=== PATIENT | male | born 1945 | race Caucasian/White ===

== ENCOUNTER 2017-10-17 07:08 | Day surgery (SDC) | payer OTHER, MEDICARE ==
[~2017-10-17] VITALS: Ht 193 cm; Wt 107.6 kg
[~2017-10-17 07:08] MED LIST: ASPI81CH; ELIQUIS2.5 MG; ROSU5 PO; TAMS.4ER
== END 2017-10-17 09:32 | disposition home or self-care (01) ==
LOC: ORSCSDS 07:08
PROVIDERS: Internal Medicine Gastroenterology
PROC: 0DBN8ZX Excision of Sigmoid Colon, Via Natural or Artificial Opening Endoscopic, Diagnostic (ICD-10-PCS; principal; 2017-10-17 08:30)
PROC: 0DBL8ZX Excision of Transverse Colon, Via Natural or Artificial Opening Endoscopic, Diagnostic (ICD-10-PCS; principal; 2017-10-17 08:30)
DX: Z12.11 Encounter for screening for malignant neoplasm of colon (principal); D12.3 Benign neoplasm of transverse colon; K63.5 Polyp of colon; K64.8 Other hemorrhoids; K57.30 Diverticulosis of large intestine without perforation or abscess without bleeding; Z86.010 Personal history of colon polyps; Z79.82 Long term (current) use of aspirin; Z79.01 Long term (current) use of anticoagulants; Z79.899 Other long term (current) drug therapy
CPT/HCPCS: J7120

== ENCOUNTER → 2017-12-04 | Outpatient (CLI) | payer OTHER, MEDICARE | END | disposition home or self-care (01) | LOC: LAB SHORT 08:48 → PLD 08:48 | DX: L82.1 Other seborrheic keratosis (principal) | CPT/HCPCS: 88305 ==

== ENCOUNTER 2022-03-31 10:45 | Inpatient (IN) | payer OTHER, MEDICARE ==
[~2022-03-31] VITALS: Ht 193 cm; Wt 113.3 kg
[2022-03-31 11:00] LABS: Calcium, Ionized (POC) 1.14 mmol/L (1.10-1.46); Chloride (POC) 108 mmol/L (98-108); Creatinine (POC) 1.9 mg/dL (0.8-1.3); Glucose (ISTAT POC) 211 mg/dL (70-99); Hemoglobin (POC) 16.7 g/dL (13.5-17.5); Potassium (POC) 3.9 mmol/L (3.5-5.5); Sodium (POC) 140 mmol/L (135-148); Total CO2 (POC) 17 mmol/L (21-32)
[2022-03-31 11:10] LABS: BASOPHILS ABSOLUTE AUTO 0.18 K/mm3 (0.00-0.23); BASOPHILS PERCENT AUTO 1 % (0-2); EOSINOPHILS ABSOLUTE AUTO 0.15 K/mm3 (0.00-0.68); EOSINOPHILS PERCENT AUTO 1 % (0-6); Hematocrit 49.8 % (37.0-53.0); IMMATURE GRAN ABSOLUTE AUTO 0.78 K/mm3 (0.00-0.10); IMMATURE GRAN PERCENT AUTO 4 % (0-1); LYMPHOCYTES ABSOLUTE AUTO 4.32 K/mm3 (0.84-5.20); LYMPHOCYTES PERCENT AUTO 22 % (21-46); MONOCYTES ABSOLUTE AUTO 0.98 K/mm3 (0.16-1.47); MONOCYTES PERCENT AUTO 5 % (4-13); Mean Corpuscular HGB 32.1 pg (26.0-34.0); Mean Corpuscular HGB Conc 32.1 g/dL (31.5-36.5); Mean Corpuscular Volume 100 fL (80-100); Mean Platelet Volume 10.1 fL (9.1-12.4); NEUTROPHILS ABSOLUTE AUTO 13.56 K/mm3 (1.96-9.15); NEUTROPHILS PERCENT AUTO 68 % (41-73); Platelet Count 232 K/mm3 (150-400); RDW Coefficient Variation 13.2 % (11.7-14.2); RDW Standard Deviation 48.8 fL (35.1-46.3); Red Blood Cell Count 4.99 M/mm3 (4.30-5.90); White Blood Cell Count 19.97 K/mm3 (4.00-11.30)
[2022-03-31 11:27] LABS: International Normalized Ratio 1.16; Prothrombin Time Results 12.1 Sec (9.7-11.5)
[2022-03-31 11:33] LABS: Albumin, Blood 3.2 g/dL (3.4-5.0); Albumin/Globulin Ratio 1.1 (0.8-1.8); Bun/Creatinine Ratio 13.4 (12.0-20.0); Calcium, Blood 8.5 mg/dL (8.5-10.1); Creatinine, Blood 1.79 mg/dL (0.60-1.20); Globulin, Blood 2.9 g/dL (2.2-4.0); Potassium, Blood 3.9 mmol/L (3.5-5.5); Total Protein, Blood 6.1 g/dL (6.4-8.2)
[2022-03-31 11:47] LABS: Source, Urine Foley catheter
[2022-03-31 12:14] LABS: Appearance, Urine Hazy (Clear); Bilirubin, Urine Neg (Neg); Blood, Urine 4+ (Neg); Color, Urine Yellow (P-Yellow); Glucose Qualitative, Urine Neg (Neg); Ketones, Urine Neg (Neg); Leukocyte Esterase, Urine 3+ (Neg); Nitrite, Urine Neg (Neg); Protein, Urine 3+ (Neg); Specific Gravity, Urine 1.015 (1.003-1.022); Urobilinogen, Urine 1+ (Normal); pH, Urine 6.5 (5.0-8.0)
[2022-03-31 12:24] LABS: White Blood Cells, Urine TNTC /hpf (0-5)
[2022-03-31 12:25] LABS: Bacteria Mod /hpf; Red Blood Cells, Urine 25-50 /hpf (0-2); Squamous Epithelial Cells Not Seen /hpf (Few); Transitional Epithelial Cells Rare /hpf (0-Rare)
[2022-03-31 12:26] LABS: Hyaline Casts 0-2 /lpf (0-2)
[2022-03-31 12:38] LABS: Influenza A, PCR NEGATIVE (NEGATIVE); Influenza B, PCR NEGATIVE (NEGATIVE); Resp Syncytial Virus, PCR NEGATIVE (NEGATIVE); SARS-Cov-2 (COVID-19) PCR, MMC NEGATIVE (NEGATIVE)
[2022-03-31 13:44] LABS: Base Excess Venous -4.1 mmol/L; Bicarbonate Venous 21.2 mmol/L (24.0-30.0); PCO2 Venous 38.7 mmHg (38-42); PO2 Venous 61.9 mmHg (38-42); pH Blood Venous 7.35 (7.34-7.37)
[2022-03-31 14:24] LABS: BASOPHILS ABSOLUTE AUTO 0.05 K/mm3 (0.00-0.23); BASOPHILS PERCENT AUTO 0 % (0-2); EOSINOPHILS ABSOLUTE AUTO 0.01 K/mm3 (0.00-0.68); EOSINOPHILS PERCENT AUTO 0 % (0-6); Hematocrit 49.6 % (37.0-53.0); Hemoglobin 16.8 g/dL (13.5-17.5); IMMATURE GRAN ABSOLUTE AUTO 0.09 K/mm3 (0.00-0.10); IMMATURE GRAN PERCENT AUTO 1 % (0-1); LYMPHOCYTES ABSOLUTE AUTO 0.81 K/mm3 (0.84-5.20); LYMPHOCYTES PERCENT AUTO 7 % (21-46); MONOCYTES ABSOLUTE AUTO 0.95 K/mm3 (0.16-1.47); MONOCYTES PERCENT AUTO 8 % (4-13); Mean Corpuscular HGB 32.4 pg (26.0-34.0); Mean Corpuscular HGB Conc 33.9 g/dL (31.5-36.5); Mean Corpuscular Volume 96 fL (80-100); NEUTROPHILS ABSOLUTE AUTO 10.34 K/mm3 (1.96-9.15); NEUTROPHILS PERCENT AUTO 84 % (41-73); Platelet Count 165 K/mm3 (150-400); RDW Coefficient Variation 13.2 % (11.7-14.2); RDW Standard Deviation 46.7 fL (35.1-46.3); Red Blood Cell Count 5.19 M/mm3 (4.30-5.90); White Blood Cell Count 12.25 K/mm3 (4.00-11.30)
--- NOTE | 2022-03-31 14:38 | NUR ---
[place] of Care: Patient arrived from ED at 1310hr via stretcher, accompanied by ED nurse and RT. Arrives intubated , not on any sedation. Vent to AC 16/550/5/50%, spO2-100%, tolerating vent without difficulty. No cough, gag, corneal, or plantar reflex noted. No response to painful stimuli. Pupils equal at approx 2mm with sluggish response bilaterally to light. Minor and occasional twitching movements or mouth. Levophed gtt stopped by ED nurse prior to transport, BP stable with systolic's in the 130's to 140's. Heart rate/rhythm shows A-fibb rate 120's-140, occasional PVC's. Amiodarone gtt infusing at 1mg/min. NS at 100ml/hr, discontinued by Dr. Zuniga. Also received order for cardiology consult per Dr. Zuniga, who spoke with Dr. Anthony. IV Keppra given per EMAR. Echo completed. Peripheral IV's x2 patent and intact. Sandoval cath patent and intact. Central line to rt subclavian patent and intact. Family (, daughter) brought to bedside, all questions answered to satisfaction. Will continue to monitor.
[2022-03-31 15:10] LABS: Anion Gap 5 mmol/L (6-16); Blood Urea Nitrogen 25 mg/dL (8-24); Bun/Creatinine Ratio 14.7 (12.0-20.0); CO2, Blood 22 mmol/L (21-32); Calcium, Blood 8.6 mg/dL (8.5-10.1); Chloride, Blood 111 mmol/L (98-108); Glomerular Filtration Rate 42 (60-); Glucose, Blood 227 mg/dL (70-99); Potassium, Blood 3.6 mmol/L (3.5-5.5); Sodium, Blood 138 mmol/L (136-145)
--- NOTE | 2022-03-31 18:32 | NUR ---
Shift Summary: Patient transported to clinical laboratory manager for angiogram with Dr. Anthony at approx 1600hr. Returned to ICU at approx 1745 (see procedure notes). TR band in place to rt radial with 11ml air in band, no s/s of bleeding or hematoma, distal limb wnl. VS remain stable, with amiodarone gtt at 0.5mg/min, Esmolol gtt at 50mcg/kg/min. Heart rate remains A-fibb in the low 100's. Patient now open eyes but not following any commands. Propofol gtt started at 15mcg/kg/min per s/s of discomfort with good effect. Plan to transport to CT at this time to rule out PE.
--- NOTE | 2022-03-31 19:00 | NUR ---
ASSUMED CARE ASSUMED CARE OF PATIENT. INTUBATED- AC/VC 16, TV 550, PEEP 5, FIO2 40%. RR 16. PROPOFOL INFUSING AT 15MCG/KG/MIN. WITHDRAWS EXTREMITIES TO NOXIOUS STIMULI. ATTEMPTS TO OPEN EYES. BILATERAL SOFT WRIST RESTRAINTS IN PLACE TO PREVENT SELF-EXTUBATION. MONITOR SHOWS AFIB, RATE 90s-100s. ESMOLOL INFUSING AT 50MCG/KG/MIN. AMIODARONE INFUSING AT 0.5MG/MIN. HEPARIN GTT AT 15UNITS/KG/HR PER PHARMACY. HYPOTENSIVE, BUT MAP >65. TEMP 97.7F- COOLING BLANKET PLACED BACK ON PT FOR TARGET TEMP OF 96.8F. OG TO LIS- SMALL AMOUNT BROWN DRAINAGE. MELTON PATENT AND DRAINING TO GRAVITY. RIJ CENTRAL LINE NOTED. SEE SHIFT ASSESSMENT FOR FULL ASSESSMENT.
[2022-04-01 02:28] LABS: BASOPHILS ABSOLUTE AUTO 0.03 K/mm3 (0.00-0.23); BASOPHILS PERCENT AUTO 0 % (0-2); EOSINOPHILS PERCENT AUTO 0 % (0-6); Hematocrit 44.4 % (37.0-53.0); IMMATURE GRAN ABSOLUTE AUTO 0.04 K/mm3 (0.00-0.10); IMMATURE GRAN PERCENT AUTO 0 % (0-1); LYMPHOCYTES ABSOLUTE AUTO 0.63 K/mm3 (0.84-5.20); LYMPHOCYTES PERCENT AUTO 6 % (21-46); MONOCYTES ABSOLUTE AUTO 0.82 K/mm3 (0.16-1.47); MONOCYTES PERCENT AUTO 8 % (4-13); Mean Corpuscular HGB 31.8 pg (26.0-34.0); Mean Corpuscular HGB Conc 33.8 g/dL (31.5-36.5); Mean Corpuscular Volume 94 fL (80-100); NEUTROPHILS ABSOLUTE AUTO 8.67 K/mm3 (1.96-9.15); NEUTROPHILS PERCENT AUTO 85 % (41-73); Platelet Count 165 K/mm3 (150-400); RDW Coefficient Variation 13.6 % (11.7-14.2); RDW Standard Deviation 47.7 fL (35.1-46.3); Red Blood Cell Count 4.72 M/mm3 (4.30-5.90); White Blood Cell Count 10.19 K/mm3 (4.00-11.30)
[2022-04-01 02:52] LABS: Albumin, Blood 2.9 g/dL (3.4-5.0); Bilirubin, Direct 0.4 mg/dL (0.0-0.3); Bilirubin, Indirect 1.8 mg/dL (0.1-0.7); Bilirubin, Total 2.2 mg/dL (0.1-1.0); Calcium, Blood 8.3 mg/dL (8.5-10.1); Creatinine, Blood 1.56 mg/dL (0.60-1.20); Globulin, Blood 2.8 g/dL (2.2-4.0); Potassium, Blood 4.5 mmol/L (3.5-5.5); Total Protein, Blood 5.7 g/dL (6.4-8.2)
--- NOTE | 2022-04-01 06:42 | NUR ---
SHIFT SUMMARY NO ACUTE CHANGES DURING NOC. REMAINS INTUBATED- FIO2 NOW 30%. SEDATED WITH PROPOFOL BETWEEN 15-25MCG/KG/MIN DURING SHIFT- NOW INFUSING AT 20MCG/KG/MIN. ALSO MEDICATED WITH FENTANYL 50MCG IV X 1 AND ATIVAN 2MG IV X 1 FOR SEDATION ADJUNCT. PT OPENS EYES TO STIMULI. WITHDRAWS EXTREMITIES. BILATERAL SOFT WRIST RESTRAINTS IN PLACE. OG TO LIS- BROWN DRAINAGE. MELTON PATENT AND DRAINING TO GRAVITY. TTM- GOAL TEMP 96.8F. MONITOR SHOWS AFIBE, RATE 80s-100S. HYPOTENSIVE, BUT MAP >65. HEPARIN NOW AT 12UNITS/KG/HR. AMIODARONE INFUSING AT 0.5MCG/MIN. ESMOLOL REMAINS OFF. WILL REPORT TO ONCOMING RN WHEN AVAILABLE.
--- NOTE | 2022-04-01 08:15 | NUR ---
ASSUMED CARE REPORT FROM RUFINA HAYWARD AT 0700. PT INTUBATED AND SEDATED. VENT SETTINGS AC/VC 16/550/5/30%. LUNGS CLEAR, DIM IN BASES. MODERATE AMOUNT OF THICK PIEDRA SECRETIONS FROM ETT. PROPOFOL GTT FOR SEDATION. COUGH/GAG REFLEX. OPENS EYES TO PRESSURE. DOES NOT FOLLOW COMMANDS. GRIMACES c CARE. DOES NOT WITHDRAW EXT TO PAINFUL STIMULI. RASS -4. PROPOFOL DECREASED. AFIB ON MONITOR, RATE 80-110'S. AMIO GTT INFUSING. HEPARIN GTT PLACED ON STANDBY PER PHARMACY. BP STABLE. MONITORING TEMP FOR TTM, 97.7. RIGHT RADIAL ACCESS SITE WNL. ABD ROUND, SOFT, NON TENDER. BT X 4. OGT CLAMPED AFTER MED ADMINSTRATION. MELTON PATENT, DRAINING CLEAR YELLOW URINE TO GRAVITY. CVC TO RSC, DRESSING C/D/I. WILL CONTINUE TO MONITOR.
[2022-04-01] MEDS ORDERED: ELIQUIS5 M3 PO (08:35)
[2022-04-01] MEDS ORDERED: SILDENAFIL CIT100 MG PO (08:36)
[2022-04-01] MEDS ORDERED: METOPROLOL SUCC25 MG PO (08:36)
[2022-04-01] MEDS ORDERED: ALFUZOSIN HCL10 MG PO (08:37)
[2022-04-01] MEDS ORDERED: ALLO300 PO (08:37)
--- NOTE | 2022-04-01 08:48 | NUR ---
RINGS TWO GOLD RINGS REMOVED AND GIVEN TO TO TAKE HOME.
--- NOTE | 2022-04-01 13:00 | NUR ---
SEDATION VACATION PROPOFOL PLACED ON STANDBY. VENT SETTINGS SPONT 5/5/30%. TV 500-600'S. TOLERATED WELL FOR SEVERAL HOURS, WHEN STARTED HAVING APENIC SPELLS, PLACED BACK ON PREVIOUS VENT SETTINGS. WHEN SEDATION WAS OFF, PT NOT FOLLOWING COMMANDS. SPONT OPENING OF EYES, DOES NOT TRACK. SLIGHT MOVEMENT NOTED TO ALL EXT. DOES NOT WITHDRAW FROM PAINFUL STIMULI. RESTARTED SEDATION D/T COUGHING AND FOR VENT COMPLIANCE.
[2022-04-01 15:28] LABS: BASOPHILS ABSOLUTE AUTO 0.02 K/mm3 (0.00-0.23); BASOPHILS PERCENT AUTO 0 % (0-2); EOSINOPHILS ABSOLUTE AUTO 0.01 K/mm3 (0.00-0.68); EOSINOPHILS PERCENT AUTO 0 % (0-6); Hematocrit 44.7 % (37.0-53.0); Hemoglobin 15.2 g/dL (13.5-17.5); IMMATURE GRAN ABSOLUTE AUTO 0.04 K/mm3 (0.00-0.10); IMMATURE GRAN PERCENT AUTO 0 % (0-1); LYMPHOCYTES ABSOLUTE AUTO 0.72 K/mm3 (0.84-5.20); LYMPHOCYTES PERCENT AUTO 6 % (21-46); MONOCYTES ABSOLUTE AUTO 0.83 K/mm3 (0.16-1.47); MONOCYTES PERCENT AUTO 7 % (4-13); Mean Corpuscular HGB 32.4 pg (26.0-34.0); Mean Corpuscular Volume 95 fL (80-100); Mean Platelet Volume 10.8 fL (9.1-12.4); NEUTROPHILS ABSOLUTE AUTO 9.91 K/mm3 (1.96-9.15); NEUTROPHILS PERCENT AUTO 86 % (41-73); Platelet Count 165 K/mm3 (150-400); RDW Coefficient Variation 13.9 % (11.7-14.2); RDW Standard Deviation 49.1 fL (35.1-46.3); Red Blood Cell Count 4.69 M/mm3 (4.30-5.90); White Blood Cell Count 11.53 K/mm3 (4.00-11.30)
[2022-04-01 15:45] LABS: Bun/Creatinine Ratio 16.9 (12.0-20.0); Calcium, Blood 8.8 mg/dL (8.5-10.1); Creatinine, Blood 1.36 mg/dL (0.60-1.20); Potassium, Blood 4.2 mmol/L (3.5-5.5)
--- NOTE | 2022-04-01 17:24 | NUR ---
SHIFT SUMMARY REMAINS INTUBATED AND SEDATED. VENT SETTTINGS AC/VC 16/550/5/30%. LUNGS CLEAR. SMALL AMOUNT OF THICK WHITE SECRETIONS FROM ETT, DECREASED FROM EARLIER THIS SHIFT. PROPOFOL GTT INFUSING. NO CHANGE IN NEURO STATUS. AFIB ON MONITOR, ESMOLOL GTT STARTED FOR RATE CONTROL, HR 90'S WHEN NOT STIMULATED, INCREASES TO 110-120'S c STIMULATION. BP STABLE. AMIO GTT CONTINUES AT 0.5 MCG/MIN. HEPARIN INFUSING AT 9 UNITS/KG/HR. CT HEAD COMPLETE THIS SHIFT. TUBE FEEDS STARTED AT 25 ML/HR c 30 ML FLUSH q4 HR, GOAL RATE 65 ML/HR. ABD ROUND, SOFT, NON TENDER, BT X 4. MELTON PATENT, DRAINED 400 ML EVERTON URINE TO GRAVITY. CVC TO RSC. CHB BATH COMPLETE. FAMILY AT BEDSIDE. WILL CONTINUE TO MONITOR UNTIL REPORT TO ONCOMING NURSE.
--- NOTE | 2022-04-01 20:00 | NUR ---
ASSUMED CARE OF PT AT 1915. REPORT RECEIVED AT BEDSIDE. PT PRESENTS IN BED. INTUBATED. AC 16, Tv 550, FIO2 30 PERCENT, PEEP 5. DOES OVER BREATHE VENT SOME. MAINTAINS SATURATIONS > 90 %. ESMOLOL DRIP PLACED TO STANDBY. HEART RATE REMAINS <100 BPM. WILL REVIEW CHART AND PLAN OF CARE FOR THIS PT.
--- NOTE | 2022-04-01 23:10 | NUR ---
PT CHANGED FROM AC/VC TO PC 12/29. PEEP AT 5. FIO2 AT 30%. PT HAD BEEN OVERBREATHING VENT WHILE ON AC/PC WELL STACKING RESPIRATIONS. PT RESTING AT THIS TIME. HAVE INCREASED PROPOFOL TO 20 MCG'S/KG/MIN. WILL CLOSELY MONITOR PT'S RESPIRATORY STATUS AND VENT COMPLIANCE. HAVE REMOVED COOLING BLANKET. PT POST 24 HOURS.
[2022-04-02 04:28] LABS: BASOPHILS ABSOLUTE AUTO 0.05 K/mm3 (0.00-0.23); BASOPHILS PERCENT AUTO 1 % (0-2); EOSINOPHILS ABSOLUTE AUTO 0.03 K/mm3 (0.00-0.68); EOSINOPHILS PERCENT AUTO 0 % (0-6); Hematocrit 41.8 % (37.0-53.0); Hemoglobin 14.2 g/dL (13.5-17.5); IMMATURE GRAN ABSOLUTE AUTO 0.05 K/mm3 (0.00-0.10); IMMATURE GRAN PERCENT AUTO 1 % (0-1); LYMPHOCYTES ABSOLUTE AUTO 1.06 K/mm3 (0.84-5.20); LYMPHOCYTES PERCENT AUTO 10 % (21-46); MONOCYTES ABSOLUTE AUTO 0.84 K/mm3 (0.16-1.47); MONOCYTES PERCENT AUTO 8 % (4-13); Mean Corpuscular HGB 32.5 pg (26.0-34.0); Mean Corpuscular Volume 96 fL (80-100); Mean Platelet Volume 10.3 fL (9.1-12.4); NEUTROPHILS ABSOLUTE AUTO 8.89 K/mm3 (1.96-9.15); NEUTROPHILS PERCENT AUTO 81 % (41-73); Platelet Count 153 K/mm3 (150-400); RDW Coefficient Variation 13.6 % (11.7-14.2); RDW Standard Deviation 48.8 fL (35.1-46.3); Red Blood Cell Count 4.37 M/mm3 (4.30-5.90); White Blood Cell Count 10.92 K/mm3 (4.00-11.30)
[2022-04-02 04:49] LABS: Albumin, Blood 2.7 g/dL (3.4-5.0); Albumin/Globulin Ratio 0.9 (0.8-1.8); Bilirubin, Total 1.6 mg/dL (0.1-1.0); Bun/Creatinine Ratio 18.5 (12.0-20.0); Calcium, Blood 8.3 mg/dL (8.5-10.1); Creatinine, Blood 1.3 mg/dL (0.60-1.20); Globulin, Blood 2.9 g/dL (2.2-4.0); Magnesium, Blood 2.1 mg/dL (1.6-2.4); Phosphorus, Blood 2.8 mg/dL (2.5-4.9); Potassium, Blood 3.6 mmol/L (3.5-5.5); Total Protein, Blood 5.6 g/dL (6.4-8.2)
--- NOTE | 2022-04-02 06:30 | NUR ---
PT CHANGED TO SPONTANEOUS. PT HAS BEEN TOLERATING THIS WELL WITHOUT APNEIC PERIODS. TOLERATING TUBE FEEDING AT 35 ML/HOUR. PT DOES OPEN EYES TO STIMULI, BUT HAS NO PURPOSEFUL MOVEMENTS. WILL CONTINUE TO MONITOR, AND WILL REPORT OFF TO ONCOMING RN.
--- NOTE | 2022-04-02 08:55 | NUR ---
ASSUMED CARE REPORT FROM GENARO HAYWARD AT 0700. PT INTUBATED AND SEDATED. VENT SETTINGS AT SHIFT CHANGE, SPONT 5/5/30%, ALARMING FOR APENIA, CHANGED SETTINGS TO AC/VC 16/550/5/30%. LUNGS CLEAR. SMALL AMOUNT OF THIN WHITE SECRETIONS FROM ETT. PROPOFOL PLACED ON STANDBY. COUGH/GAG REFLEX. OPENS EYES TO PRESSURE. DOES NOT WITHDRAW FROM PAIN. NO MOVEMENT TO EXT NOTED AT THIS TIME. AFIB ON MONITOR, RATE 110'S AT SHIFT CHANGE, RESTARTED ESMOLOL GTT, 90-100 AT THIS TIME. AMIO GTT AND HEPARIN GTT INFUSING. BP STABLE. PT FLUSHED TO UPPER CHEST AND BILATERAL KNEES, BLANCHES. TEMP 100.2, TYLENOL GIVEN, FAN APPLIED. TUBE FEEDS AT 35 ML, GOAL 65ML. ABD ROUND, SOFT, NON TENDER. BT X 4. MELTON PATENT, EVERTON URINE OUT. CVC TO RSC, DRESSING C/D/I. WILL CONTINUE TO MONITOR.
--- NOTE | 2022-04-02 10:27 | NUR ---
Spoke with glass grinder Stacey and Primary RN Kamille. Discussed case and concerns. Pt resting in bed and is intubated. Sedation off and Pt's eyes open and close intermittently. No S/S of distress at this time. Pt's spouse Brooklynn at bedside. Offered therapeutic listening and reviewed plan of care. Listened as Brooklynn reports being to Pt for 20 years and dated for 8 years prior to marriage. Brooklynn reports Pt has 2 children and she has 1 child. Children are supportive. Listened as Brooklynn discusses events leading up to event. Brooklynn appears to be struggling with some guilt. Continued therapeutic listening and normalized feelings. Offered emotional support as Brooklynn is intermittently tearful. Ended visit to allow Brooklynn time with Pt. Palliative Care will remain available.
--- NOTE | 2022-04-02 13:36 | NUR ---
SEDATION VACATION PT OFF PROPOFOL FOR APPROX 5 HOURS. PT OPENS EYES SPONT MORE FREQUENTLY, GRIMACED FACE. DOES NOT WITHDRAW EXT FROM PAIN. DOES NOT FOLLOW COMMANDS. NO MOVEMENT TO EXT NOTED. COUGH/GAG REFLEX, CORNEAL REFLEX PRESENT. RESTARTED PROPOFOL PER DR LOU FOR SEIZURE PREVENTION, NO SEIZURE LIKE ACTIVITY NOTED. EEG ORDERED FOR MONDAY.
--- NOTE | 2022-04-02 18:20 | NUR ---
SHIFT SUMMARY REMAINS INTUBATED AND SEDATED. VENT SETTINGS AC/VC 16/550/5/30%. LUNGS CLEAR, SMALL AMOUNT OF THIN SECRETIONS FROM ETT, COPIOUS ORAL SECRETIONS. RESTARTED PROPOFOL, SEE SEDATION VACATION NOTE. PT OPENS EYES SPONT, COUGH/GAG/CORNEAL REFLEX PRESENT. SPONT MOVEMENT TO ALL EXT, DOES NOT FOLLOW COMMANDS. AFIB, RATE 80-90'S. ESMOLOL AND AMIO GTT CONTINUE. HEPARIN GTT INFUSING. BP STABLE. TUBE FEEDS INFUSING, INCREASED THIS SHIFT. MELTON PATENT, DRAINED 350 ML EVERTON URINE TO GRAVITY. INCREASED SWELLING NOTED TO RLE, STATES PT HAS DVT IN THIS LEG. WILL CONTINUE TO MONITOR UNTIL REPORT TO ONCOMING NURSE.
--- NOTE | 2022-04-02 19:15 | NUR ---
ASSUMED CARE OF PT AT 1900. REPORT RECEIVED AT BEDSIDE. PT'S FAMILY WAS PRESENT. ALLOWED FOR FAMILY QUESTIONS AND INPUT. PT INTUBATED. VENT: AC/VC 16, Tv 550, FIO2 30%, PEEP 5. PT MAINTAINS SATURATIONS > 90 PERCENT. NO S/S DISTRESS. WILL REVIEW CHART AND PLAN OF CARE FOR THIS PT.
--- NOTE | 2022-04-02 22:57 | NUR ---
REPORT GIVEN TO YESY LOVE.
--- NOTE | 2022-04-02 23:05 | NUR ---
ASSUMED CARE OF PT @2300 FROM GENARO HAYWARD. BEDSIDE REPORT: PT IS SEDATED AND INTUBATED. PROPOFOL 20MCG/KG/MIN. ETT 8.0/26@TEETH. AC VC 15/550/5/30%. RR 16, SPO2 >92%. CONTINUOUS CARDIAC MONITORING. AFIB HR 80'S. AMIODARONE 0.5MG/MIN, HEPARIN 11U/KG/HR, ESMOLOL 25MCG/KG/MIN, TKO 10MLS/HR. CENTRAL LINE RSC INFUSING, 20GA UBALDO PATENT AND INFUSING, IV L WRIST PATENT AND INFUSING. TF PIVOT 55MLS/HR. TEMP MELTON PATENT AND DRAINING TO GRAVITY.
--- NOTE | 2022-04-03 03:30 | NUR ---
UPDATE: PT'S BLOOD PRESSURE TRENDING DOWN. HR DECREASED INTO THE 50'S. ESMOLOL PUT ON SB.
[2022-04-03 05:41] LABS: Hematocrit 38.7 % (37.0-53.0); Hemoglobin 12.9 g/dL (13.5-17.5); Mean Corpuscular HGB Conc 33.3 g/dL (31.5-36.5); Mean Corpuscular Volume 96 fL (80-100); Mean Platelet Volume 10.5 fL (9.1-12.4); Platelet Count 135 K/mm3 (150-400); RDW Coefficient Variation 13.5 % (11.7-14.2); RDW Standard Deviation 48.4 fL (35.1-46.3); Red Blood Cell Count 4.03 M/mm3 (4.30-5.90); White Blood Cell Count 9.24 K/mm3 (4.00-11.30)
[2022-04-03 05:57] LABS: Magnesium, Blood 2.3 mg/dL (1.6-2.4)
[2022-04-03 06:00] LABS: Bun/Creatinine Ratio 18.8 (12.0-20.0); Calcium, Blood 8.1 mg/dL (8.5-10.1); Creatinine, Blood 1.44 mg/dL (0.60-1.20); Phosphorus, Blood 2.6 mg/dL (2.5-4.9); Potassium, Blood 3.4 mmol/L (3.5-5.5)
--- NOTE | 2022-04-03 06:11 | NUR ---
SUMMARY NEURO/PSYCH/MOBILITY: SEDATED ON PROPOFOL 20MCG/KG/MIN. PT HAS GENERALIZED TREMORS W/REPOSITIONING AND WILL OPEN EYES WITH AN UPWARD GAZE. AGITATION TREATED W/PRN FENTANYL AND ATIVAN. DOES NOT RESPOND TO VERBAL STIMULI, TRAPEZIUS SQUEEZE, OR NAIL BED PRESSURE. FLACCID UPPER EXTREMETIES. SPONTANEOUS RIGHT FOOT TWITCH DURING 0400 REPOSITIONING, OTHERWISE FLACCID. PT IS MAX ASSIST W/ALL ADL'S. PT WAS FEBRILE AND TREATED W/TYLENOL PRN. RESP: VENT AC VC 16/550/5/30%. LUNGS CLEAR W/DIM BASES. RR 16, SPO2 >92%. PT HAVING SMALL AMOUNTS OF CLEAR ORAL SECRETIONS. CARDIAC: CONTINUOUS CARDIAC MONITORING. AFIB RHYTHM. ESMOLOL PUT ON SB DUE TO BP DECREASING, MAP IN THE 60'S, AND HR DROPPING INTO THE 50'S. HEPARIN 11U/KG/HR, AMIODARONE 0.5 MG/MIN. GI: OG INFUSING PIVOT TF @65MLS/HR GR. NO BM THIS SHIFT. : MELTON CATH PATENT AND DRAINING TO GRAVITY. SKIN: ASSESSMENT REMAINS UNCHANGED. IV ACCESS: RSC CL INFUSING. 20GA UBALDO PATENT AND INFUSING. IV L WRIST PATENT AND INFUSING.
--- NOTE | 2022-04-03 07:48 | NUR ---
ASSUMED CARE BEDSIDE REPORT FROM IVAN HAYWARD AT 0700. PT INTUBATED AND SEDATED. VENT SETTINGS AC/VC 16/550/5/30%. LUNGS CLEAR. SMALL AMOUNT OF THICK WHITE SECRETIONS FROM ETT. PROPOFOL GTT INFUSING. COUGH/GAG/CORNEAL REFLEX. LOWER EXT TREMOR WHEN CARE IS PROVIDED. DOES NOT WITHDRAW FROM PAINFUL STIMULI. DOES NOT FOLLOW DIRECTIONS. AFIB ON MONITOR, RATE 70-80'S. AMIO AND HEPARIN GTT INFUSING. ESMOLOL ON STANDBY. BP STABLE. FLUSHING TO CHEST IMPROVED SINCE YESTERDAY DAY SHIFT. ABD ROUND, SOFT, NON TENDER. BT X 4. TUBE FEEDS AT GOAL. MELTON PATENT, DRAINING EVERTON URINE TO GRAVITY. WILL CONTINUE TO MONITOR.
--- NOTE | 2022-04-03 10:54 | NUR ---
Pt resting in bed, intubated, and sedated. Family at bedside. Offered supportive visit and answered some questions. Deferred some questions for Primary YESY Simental and Dr Stewart to discuss. Engaged in gentle and brief discussion regarding code status wishes. Family will consider. Spoke with Primary YESY Simental and discussed case. Palliative Care will remain available
--- NOTE | 2022-04-03 18:35 | NUR ---
SHIFT SUMMARY NO ACUTE CHANGES THIS SHIFT REMAINS INTUBATED. VENT SETTINGS UNCHANGED, AC/VC 16/550/5/30%. LUNGS CLEAR. SMALL AMOUNT OF THICK YELLOW SECRETIONS FROM ETT. COPIOUS ORAL SECRETIONS. PROPOFOL GTT FOR SEDATION. PLACED ON STANDBY FOR APPROX 4 HOURS. PT OPENS EYES SPONT, DOES NOT TRACK OR FOLLOW COMMANDS. NO WITHDRAWING TO PAINFUL STIMULI TO UPPER EXT, WITHDRAWS BLE. COUGH/GAG REFLEX. MARZENA. AFIB, RATE 70-80'S. BP STABLE, AFEBRILE. TUBE FEEDS AT GOAL, TOLERATING WELL. MELTON PATENT, DRAINED 400 ML CLEAR EVERTON URINE TO GRAVITY. CT COMPLETED THIS SHIFT, UNCHANGED. PLAN FOR EEG TOMORROW. WILL CONTINUE TO MONITOR UNTIL REPORT TO ONCOMING NURSE.
--- NOTE | 2022-04-03 20:08 | NUR ---
PATIENT INTUBATED AND SEDATED WITH PROPOFOL 20 MCG, TITRATED UP TO 30 MCG DUE TO PATIENT STACKING BREATHS WITH NO STIMULI, WITH STIMULI PATIENT COUGHING AND GAGGING WITH STIMULI. AFIB CONTINUES WITH HEART RATE UP TO 120 WITH STIMULI, BACK 80-90 AFTER REPOSITIONING. AMIODARONE O.5 MCG CONTINUES. HEPARIN DRIP INCREASED TO 13 UNITS PER PHARMACY. ETT IN PLACE WITH VENT AC VC 16, TV 550, PEEP 5, FIO2 30% SUCTIONING LARGE AMT OF CLEAR ORAL SECRETIONS, SMALL AMT OF CLEAR TO WHITE SECRETIONS VIA ETT. OG REMAINS IN PLACE WITH TUBE FEEDING AT GOAL RATE OF 65 CC/HR WITH PIVOT 1.5.
[2022-04-04 04:57] LABS: Hematocrit 38.6 % (37.0-53.0); Hemoglobin 12.9 g/dL (13.5-17.5); Mean Corpuscular HGB 32.2 pg (26.0-34.0); Mean Corpuscular HGB Conc 33.4 g/dL (31.5-36.5); Mean Corpuscular Volume 96 fL (80-100); Mean Platelet Volume 10.4 fL (9.1-12.4); Platelet Count 144 K/mm3 (150-400); RDW Coefficient Variation 13.5 % (11.7-14.2); RDW Standard Deviation 48.1 fL (35.1-46.3); Red Blood Cell Count 4.01 M/mm3 (4.30-5.90); White Blood Cell Count 7.17 K/mm3 (4.00-11.30)
[2022-04-04 06:31] LABS: Bun/Creatinine Ratio 17.5 (12.0-20.0); Calcium, Blood 8.1 mg/dL (8.5-10.1); Creatinine, Blood 1.37 mg/dL (0.60-1.20); Magnesium, Blood 2.4 mg/dL (1.6-2.4); Phosphorus, Blood 2.8 mg/dL (2.5-4.9); Potassium, Blood 3.2 mmol/L (3.5-5.5)
--- NOTE | 2022-04-04 07:00 | NUR ---
SUMMARY PATIENT REMAINS INTUBATED AND SEDATED. PROPOFOL TITRATED DUE TO PATIENT STACKING BREATHS. DURING THE NIGHT HEART RATE DOWN TO 40'S AFIB AND BP DROPPING SLIGHTLY PROPOFOL BACK DOWN TO 25 MCG WITH HEART RATE NOW 60'S. AMIODARONE DRIP 0.5 CONTINUES. HEPARIN DRIP TITRATED PER PHARMACY. OG IN PLACE WITH PIVOT 1.5 AT GOAL RATE OF 65 CC/HR T/O NIGHT.
--- NOTE | 2022-04-04 07:30 | NUR ---
ASSUMED CARE: PT INTUBATED AND SEDATED UPON ASSESSMENT. SEDATION ON SB FOR SEDATION VACATION. PT GRIMACES TO NOXIOUS STIMULI BUT NO PURPOSEFUL MOVEMENT NOTED. VENT SETTINGS AC 16/550/30/5. DR NEAL AT BEDSIDE AND INSTRUCTS FOR AMIODORONE TO BE TURNED OFF DUE TO RUNNING FOR SEVERAL DAYS. WILL ORDER REPLACEMENT. CURRENT HR AFIB IN 80S. TF AT GOAL. MELTON DRAINING CLEAR YELLOW URINE. NO ACUTE NEEDS AT THIS TIME.
--- NOTE | 2022-04-04 08:18 | NUR ---
PROPOFOL RESUMED AT 25MCG/KG/MIN DUE TO STACKING BREATHS ON VENT.
--- NOTE | 2022-04-04 12:22 | NUR ---
DR LAIRD CAME TO BEDSIDE AND DIRECTED TO PUT PROPOFOL ON SB AND TO ADJUST VENT SETTINGS IF PT STARTS STACKING BREATHS AGAIN. WILL DISCUSS WITH RT IF NEEDED
--- NOTE | 2022-04-04 14:22 | NUR ---
MULTICULTURAL SERVICES LIBRARIAN AT BEDSIDE NOW. DURING WIRE PLACEMENT, PT BEGAN COUGHING AND ARMS MOVED IN A DECERABATE MOTION UP TOWARD THE ETT. HANDS REMOVED FROM SITE AND TECH PROCEEDING WITH SET UP. DR LAIRD AWARE AND WILL EVALUATE UPON COMPLETION OF EEG
--- NOTE | 2022-04-04 14:33 | NUR ---
Spiritual care visit conducted. Pt is lying in bed and minimally responsive. Pt's Dtr, Pat is bedside and shares about the family history, patient's qualities, characteristics and struggles. 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 We talk about Pat's solid family and friend support system and her desires to have some more time with her dad. I encourage self-care, reinforce helpful attitudes and provide therapeutic listening and a calming presence. Pat responds well and shows signs of catharsis. I will continue to remian avialable to patient and family.
--- NOTE | 2022-04-04 21:04 | NUR ---
PATIENT INTUBATED PROPOFOL OFF, FAMILY AT BEDSIDE, PATIENT APPEARS TO MAKE EYE CONTACT OFF AND ON, TEARFUL AT TIMES, NOT FOLLOWING DIRECTIONS. ETT IN PLACE WITH VENT ACVC 16, TV 550, PEEP 5, FIO2 30% SUCTIONING LARGE AMT OF CLEAR TO WHITE SECRETIONS VIA ETT AND ORAL. OG IN PLACE WITH PIVOT 1.5 AT GOAL RATE OF 65 CC/HR. HEPARIN DRIP CONTINUES PER PHARMACY. PLAN TO NOT RESTART SEDATION IF PATIENT LAUREN VENT.
[2022-04-05 05:14] LABS: BASOPHILS ABSOLUTE AUTO 0.05 K/mm3 (0.00-0.23); BASOPHILS PERCENT AUTO 1 % (0-2); EOSINOPHILS ABSOLUTE AUTO 0.07 K/mm3 (0.00-0.68); EOSINOPHILS PERCENT AUTO 1 % (0-6); Hematocrit 39.6 % (37.0-53.0); Hemoglobin 12.8 g/dL (13.5-17.5); IMMATURE GRAN ABSOLUTE AUTO 0.06 K/mm3 (0.00-0.10); IMMATURE GRAN PERCENT AUTO 1 % (0-1); LYMPHOCYTES PERCENT AUTO 10 % (21-46); MONOCYTES ABSOLUTE AUTO 0.95 K/mm3 (0.16-1.47); MONOCYTES PERCENT AUTO 12 % (4-13); Mean Corpuscular HGB 31.5 pg (26.0-34.0); Mean Corpuscular HGB Conc 32.3 g/dL (31.5-36.5); Mean Corpuscular Volume 98 fL (80-100); Mean Platelet Volume 11.1 fL (9.1-12.4); NEUTROPHILS ABSOLUTE AUTO 5.89 K/mm3 (1.96-9.15); NEUTROPHILS PERCENT AUTO 75 % (41-73); Platelet Count 160 K/mm3 (150-400); RDW Coefficient Variation 13.6 % (11.7-14.2); RDW Standard Deviation 49.9 fL (35.1-46.3); Red Blood Cell Count 4.06 M/mm3 (4.30-5.90); White Blood Cell Count 7.82 K/mm3 (4.00-11.30)
--- NOTE | 2022-04-05 06:38 | NUR ---
SUMMARY PATIENT REMAINS INTUBATED. PROPOFOL REMAINS OFF, MEDICATED TWICE WITH FENTANYL FOR INCREASED GRIMACING, COUGHING AND CHEWING ON ETT. CONTINUES TO NOT FOLLOW DIRECTIONS. AT TIMES GROSS MOVEMENT SEEN IN EXTREMITIES. VENT SETTINGS CHANGED BY DOCTOR SISI AT APROX 0500 TO AC/VC+ 16, TV 550, PEEP 5, FIO2 30% SUCTIONING COPIOUS AMOUNTS OF CLEAR TO WHITE FROM ETT AND ORAL. OG REMAINS IN PLACE WITH TUBE FEEDING AT GOAL RATE WITH PIVOT 1.5. AFTER MOM GIVEN PATIENT HAS HAD SEVERAL LIQUID BROWN BM'S
--- NOTE | 2022-04-05 07:40 | NUR ---
ASSUMED CARE: REPORT RECEIVED FROM BENEDICTO Cardenas RN. ASSUMED CARE OF THIS PT AT APPROX 0700. ON ASSESSMENT, THE PT IS INTUBATED & RESTING QUIETLY. NO SEDATION INFUSING. HE OPENS EYES SPONTANEOUSLY & TO VERBAL STIMULUS BUT DOES NOT FOCUS OR TRACK. JORDAN, IS NOT FOLLOWING COMMANDS & DOES NOT APPEAR TO BE COMPLETELY PURPOSEFUL W/ MOVEMENTS, ALTHOUGH MOVEMENTS ARE REACTIVE TO STIMULUS. LS DIM IN BASES, PT HAVING COPIOUS AMNTS OF THIN CLEAR-WHITE SECRETIONS SUCTIONED ORALLY & THROUGH ETT. MONITOR SHOWS AFIB W/ OCCASIONAL PVCs, HR 60-80s. DBP ELEVATED PRIOR TO SCHEDULED AM MEDS. OGT IN PLACE W/ PIVOT TF INFUSING AT GOAL RATE OF 65 ML/HR W/ NO S/SX INTOLERANCE NOTED. PT HAVING LARGE AMNTS LOOSE BROWN BMs THIS AM, RECTAL TUBE PLACED. TEMP MELTON PATENT/ DRAINING YELLOW URINE. SKIN OVERALL INTACT, Q2H REPOSITIONING TO MAINTAIN SKIN INTEGRITY. WILL CONTINUE TO MONITOR & UPDATE NEEDED.
[2022-04-05 09:03] LABS: Albumin, Blood 2.5 g/dL (3.4-5.0); Albumin/Globulin Ratio 0.8 (0.8-1.8); Bun/Creatinine Ratio 19.2 (12.0-20.0); Calcium, Blood 8.8 mg/dL (8.5-10.1); Creatinine, Blood 1.3 mg/dL (0.60-1.20); Globulin, Blood 3.2 g/dL (2.2-4.0); Magnesium, Blood 2.5 mg/dL (1.6-2.4); Phosphorus, Blood 3.5 mg/dL (2.5-4.9); Total Protein, Blood 5.7 g/dL (6.4-8.2)
--- NOTE | 2022-04-05 13:50 | NUR ---
Spiritual care visit conducted. Patient continues to struggle as his dtr Pat watches. She talks about taking the week off form work because of her father's condition and because of the medical unknowns as they wait to see what his recovery may look like. She also tells me about a sweet moment of connection that she and Brooklynn had with the patient last night where he had some brief moments of clarity and appeared to be responding with tears and expressions in his eyes. The family's hope remains intact but they are very realistic as well and don't want to hold him back if leaving this world is his desire. I listen empathically, encourage self-care and provide spiritual guidance gentle automobile club travel counselor and a calming presence. Pat responds well and showed signs of an increase in peace. I will continue to remain available to patient and family.
--- NOTE | 2022-04-05 16:48 | NUR ---
SHIFT SUMMARY: NO ACUTE CHANGES SINCE PRIOR UPDATES. PT REMAINS INTUBATED, NO SEDATION INFUSING. OPENS EYES SPONTANEOUSLY BUT DOES NOT TRACK OR FOCUS. DOES NOT FOLLOW DIRECTIONS. LS CLEAR, DIM IN BASES. COPIOUS AMNTS THIN CLEAR-WHITE SECRETIONS SUCTIONED THROUGH ETT & ORALLY. VENT SETTINGS: SPONTANEOUS W/ PS 8, PEEP 5 & 30% FIO2 W/ O2 SATS > 95%. MONITOR SHOWS AFIB W/ OCCASIONAL PVCs, HR 60-80s, BP STABLE. OGT IN PLACE W/ TUBE FEEDS INFUSING AT GOAL RATE, NO S/SX INTOLERANCE NOTED. RECTAL TUBE IN PLACE W/ BROWN LIQUID STLS DRAINING, BANNATROL ORDERED PER DIETARY. TEMP MELTON PATENT/ DRAINING YELLOW URINE. SKIN CONDITION OVERALL INTACT, Q2H REPOSITIONING TO MAINTAIN SKIN INTEGRITY. WILL CONTINUE TO MONITOR & REPORT OFF TO ONCOMING RN.
--- NOTE | 2022-04-05 21:25 | NUR ---
PATIENT INTUBATED WITH VENT SPONT 10/5 FIO2 30% SUCTIONING COPIOUS AMT OF CLEAR TO WHITE SECRETIONS VIA ETT AND ORAL SUCTIONING. PATIENT CONTINUES TO NOT FOLLOW DIRECTIONS, OPENS EYES SPONT, TREMAYNE, GROSS MOVEMENT SEEN TO EXTREMITIES MORE SO WHEN COUGHING. OG IN PLACE WITH PIVOT 1.5 AT GOAL RATE OF 65 CC/HR. RECTAL TUBE IN PLACE DRAINING LIQUID BROWN STOOL, HAVING MOD AMT OF LEAKING AROUND TUBE.
[2022-04-06 05:17] LABS: Albumin, Blood 2.3 g/dL (3.4-5.0); Albumin/Globulin Ratio 0.7 (0.8-1.8); Bun/Creatinine Ratio 24.6 (12.0-20.0); Calcium, Blood 8.4 mg/dL (8.5-10.1); Creatinine, Blood 1.3 mg/dL (0.60-1.20); Globulin, Blood 3.2 g/dL (2.2-4.0); Magnesium, Blood 2.7 mg/dL (1.6-2.4); Phosphorus, Blood 3.6 mg/dL (2.5-4.9); Potassium, Blood 3.9 mmol/L (3.5-5.5); Total Protein, Blood 5.5 g/dL (6.4-8.2)
[2022-04-06 05:20] LABS: BASOPHILS ABSOLUTE AUTO 0.05 K/mm3 (0.00-0.23); BASOPHILS PERCENT AUTO 1 % (0-2); EOSINOPHILS ABSOLUTE AUTO 0.03 K/mm3 (0.00-0.68); EOSINOPHILS PERCENT AUTO 0 % (0-6); Hematocrit 38.5 % (37.0-53.0); Hemoglobin 12.5 g/dL (13.5-17.5); IMMATURE GRAN ABSOLUTE AUTO 0.07 K/mm3 (0.00-0.10); IMMATURE GRAN PERCENT AUTO 1 % (0-1); LYMPHOCYTES ABSOLUTE AUTO 0.64 K/mm3 (0.84-5.20); LYMPHOCYTES PERCENT AUTO 8 % (21-46); MONOCYTES ABSOLUTE AUTO 0.91 K/mm3 (0.16-1.47); MONOCYTES PERCENT AUTO 11 % (4-13); Mean Corpuscular HGB 31.6 pg (26.0-34.0); Mean Corpuscular HGB Conc 32.5 g/dL (31.5-36.5); Mean Corpuscular Volume 98 fL (80-100); NEUTROPHILS ABSOLUTE AUTO 6.46 K/mm3 (1.96-9.15); NEUTROPHILS PERCENT AUTO 79 % (41-73); Platelet Count 171 K/mm3 (150-400); RDW Coefficient Variation 13.6 % (11.7-14.2); RDW Standard Deviation 48.9 fL (35.1-46.3); Red Blood Cell Count 3.95 M/mm3 (4.30-5.90); White Blood Cell Count 8.16 K/mm3 (4.00-11.30)
--- NOTE | 2022-04-06 07:00 | NUR ---
SUMMARY PATIENT REMAINS INTUBATED ETT IN PLACE WITH VENT SPONT 8/5 FIO2 30% CONTINUE TO SUCTION LARGE AMT OF CLEAR TO WHITE VIA ETT, AND COPIOUS AMT OF CLEAR SECRETIONS ORALLY. PROPOFOL REMAINS OFF. MEDICATED WITH FENTANYL ONCE DURING THE NIGHT AFTER BED BATH. PATIENT OPENING EYES SPONT BUT DOESN'T APPEAR TO FOCUS, NOT TRACKING. GROSS MOVEMENT SEEN IN EXTREMITIES, BUT NOT TO DIRECTIONS. OG REMAINS IN PLACE WITH PIVOT 1.5 AT GOAL RATE OF 65 CC/HR. RECTAL TUBE CONTINUES TO DRAIN LIQUID BROWN STOOL AND A LOT OF AIR. HEPARIN DRIP CONTINUES TITRATED TO 17 UNITS THIS AM. MONITOR CONTINUES TO SHOW AFIB AT A CONTROLLED RATE.
--- NOTE | 2022-04-06 07:00 | NUR ---
ASSUME CARE: I have assumed care of this patient.
--- NOTE | 2022-04-06 11:44 | NUR ---
Supportive visit this AM. Pt resting in bed, eyes opened and closed intermittently, and not sedated. Spouse Brooklynn at bedside. Offered therapeutic listening, validated concerns. Brooklynn reports Pt is someone who considers quality of life of more value over longevity. Dr Trujillo in to exam Pt. Dr Trujillo reviews plan of care and answers questions. Continued therapeutic visit and discussed code status wishes. Brooklynn reports plan to discuss further with family today and reports Pt would probably not want to receive CPR again. Palliative Care will remain available
--- NOTE | 2022-04-06 18:50 | NUR ---
SHIFT SUMMARY: NEURO: +gag/+cough/+occulocephalic/+babinski. decordicate posturing with cough. no extremity movement with noxious stimulation. eyes open, but does not track. No sedation today. One dose for 50mcg prn fentanyl for grimacing. CARDIAC: afib/aflutter on monitor. stable BPs. trace edema of BLE RESPIRATORY: PS 8/5 30%. copious oral and inline secretions. GI/: rectal tube in place with liquid output. dark nesha urine from luis. tube feeds continue running at goal. PSYCH/SOCIAL: spouse and adult children at bedside throughout the day. Family has had several conversations pertaining to comfort care. Plan to transition tomorrow afternoon.
--- NOTE | 2022-04-06 21:49 | NUR ---
ASSUMED CARE PT IS INTUBATED W/ PRESSURE SUPPORT AT 8/5/30%; SPO2 >92%. MAP >65. COPIOUS AMOUNTS OF SECRETIONS BEING SUCTIONED Q1H FOR THIS RN. RT STATED THAT IT "SMELLED REALLY BAD"; SECRETIONS ARE LIGHT YELLOW. PT HAS COUGH, GAG, SWALLOW REFLEX. DOES NOT RESPOND TO NAILBED PRESSURE/TRAPEZIUS SQUEEZE; POSITIVE BABINSKI'S REFLEX. GRIMACING ONLY NOTED WHEN PT IS COUGHING OR WHILE GETTING SUCTIONED. LUNG SOUNDS ARE COARSE DIM IN BASES, CLEAR IN UPPER LOBES.
[2022-04-07 04:30] LABS: BASOPHILS ABSOLUTE AUTO 0.04 K/mm3 (0.00-0.23); BASOPHILS PERCENT AUTO 0 % (0-2); EOSINOPHILS ABSOLUTE AUTO 0.06 K/mm3 (0.00-0.68); EOSINOPHILS PERCENT AUTO 1 % (0-6); Hematocrit 39.6 % (37.0-53.0); IMMATURE GRAN ABSOLUTE AUTO 0.12 K/mm3 (0.00-0.10); IMMATURE GRAN PERCENT AUTO 1 % (0-1); LYMPHOCYTES ABSOLUTE AUTO 0.74 K/mm3 (0.84-5.20); LYMPHOCYTES PERCENT AUTO 7 % (21-46); MONOCYTES ABSOLUTE AUTO 1.12 K/mm3 (0.16-1.47); MONOCYTES PERCENT AUTO 11 % (4-13); Mean Corpuscular HGB Conc 32.8 g/dL (31.5-36.5); Mean Corpuscular Volume 98 fL (80-100); Mean Platelet Volume 10.3 fL (9.1-12.4); NEUTROPHILS ABSOLUTE AUTO 8.41 K/mm3 (1.96-9.15); NEUTROPHILS PERCENT AUTO 80 % (41-73); Platelet Count 183 K/mm3 (150-400); RDW Coefficient Variation 13.8 % (11.7-14.2); RDW Standard Deviation 49.4 fL (35.1-46.3); Red Blood Cell Count 4.06 M/mm3 (4.30-5.90); White Blood Cell Count 10.49 K/mm3 (4.00-11.30)
[2022-04-07 04:50] LABS: Bun/Creatinine Ratio 31.1 (12.0-20.0); Calcium, Blood 8.4 mg/dL (8.5-10.1); Creatinine, Blood 1.03 mg/dL (0.60-1.20); Magnesium, Blood 2.4 mg/dL (1.6-2.4); Phosphorus, Blood 3.5 mg/dL (2.5-4.9)
--- NOTE | 2022-04-07 05:25 | NUR ---
SHIFT SUMMARY PT IS INTUBATED W/ PRESSURE SUPPORT AT 8/5/35%; SPO2 >92%. MAP >65. NO ACUTE EVENTS SINCE ASSUMED CARE NOTE. PT HAS BEEN YAWNING INTERMITTENTLY T/O NIGHT, BUT NO OTHER NEW EVENTS. COPIOUS AMOUNTS OF THIN YELLOW/WHITE SECRETIONS SUCTIONED OUT OF ETT TUBE. MELTON/RECTAL TUBE PATENT AND DRAINING TO GRAVITY.
--- NOTE | 2022-04-07 07:00 | NUR ---
ASSUME CARE: I have assumed care of this patient.
--- NOTE | 2022-04-07 11:57 | NUR ---
Spiritual care visit conducted. Patient is lying in bed and minimally responsive. 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 I will continue to remain available to patient and family.
--- NOTE | 2022-04-07 16:33 | NUR ---
Spiritual care visit conducted. Patient is minimally responsive and has family present in the room. Family share of their personal thought and concerns. I conduct a life review, assist patient spouse with working through the struggles of the events that led to the hospitalization and honor their family strength and dynamic coping skills. I provide therapeutic listening and a calming presence. Family state that the conersation was meaningful and helpful as the process the dire situation and deal with anticipatory grief.
--- NOTE | 2022-04-07 16:45 | NUR ---
EXTUBATION: Pt extubated by RT with RN at bedside to 4L NC.
--- NOTE | 2022-04-07 16:53 | NUR ---
Pt resting in bed and intubated. Pt not sedated and non responsive. Family at bedside. Offered therapeutic listening and answered questions. Family reports plan to move forward with comfort care once additional family arrives. Spoke with Dr Trujillo and discussed case. Placed comfort care order, comfort care order set, D/C maintenance medications per V/O from Dr Trujillo. Palliative Care will remain available for supportive visits and symptom management.
--- NOTE | 2022-04-07 18:37 | NUR ---
"Spiritual Care | Pt. Extubation Pt. is intubated and mostly not resppnsive. Spouse and children are present and welcome my visit. Spouse is unsettlewd about the upcoming extubation. Listen with care and empathy and normalize the Pt. experience. Nurse and RT facilitate the extubation with care while educating the family of the specifics of the procedure. Family elected to stay in the room. Established rapport for over 90 minutes, and educated the spouse regarding EOL procedures. Spouse will talk with sister bethel before selecting a home. Spouse declined a info sheet. Family verbalized gratitude for the spiritual care visit."
--- NOTE | 2022-04-07 18:40 | NUR ---
SHIFT SUMMARY: pt transitioned to comfort care this afternoon. he was extubated with family present at bedside. spiritual care present for family support. pt appears comfortable at this time.
--- NOTE | 2022-04-08 05:43 | NUR ---
END OF SHIFT REPORT PT COMFORT CARE. CONSTANCE AT BEDSIDE. NEURO/MUSCULOSKELETAL: PUPILS 4MM AND PERRL. DOES NOT FOLLOW COMMANDS. POSITIVE COUGH AND GAG. NO RESPONSE FROM LIMBS TO NOXIOUS STIMULI. WILL OPEN EYES AND THRASH WITH SUCTIONING. CARDIAC: AFIB. HR 100s-120s. RESPIRATORY: 2L NC. SATTING >95%. COPIOUS SECRETIONS OVERNIGHT. SCOPOLAMINE PATCH AND ATROPINE TO MANAGE. MULTIPLE NT SUCTIONS REQUIRED. WEAK MOIST COUGH. GASPING BREATHES. GI/: HYPOACTIVE BOWEL SOUNDS NOTED. RECTAL TUBE AND MELTON IN PLACE. BOTH PATENT AND DRAINING. INTEGUMENTARY: SKIN INTACT
--- NOTE | 2022-04-08 06:31 | NUR ---
MOVED PT TO 362. FAMILY NOTIFIED
--- NOTE | 2022-04-08 06:39 | NUR ---
PT ICU TRANSFER TO [facility] AT 0630. ON COMFORT CARE. HAS RECTAL TUBE AND MELTON CATHETER. PT SLEEPING AND SNORING DURING TRANSFER TO BED. BED ALARM ON.
--- NOTE | 2022-04-08 09:24 | NUR ---
0700 RECEIVED REPORT FROM SEGUNDO HAYWARD. PT IS AN ICU TRANSFER RECIVED TO MED FLOOR AT 0630 THIS AM. PT IS NON-RESPONSIVE WITH RAPID SHALLOW BREATHING WITH ACCESSORY MUSCLES ENGAGED. THERE IS A QUAD LUMEN CENTRAL LINE IN THE R SUB CLAVIAN, A PIV IN R AC, THERE IS A F/C & A RECTAL TUBE IN PLACE. ALL INTACT & PATENT. MEDICATED PER EMAR WITH ROXANOL & IV ATIVAN. PT IS COMFORT CARE.
--- NOTE | 2022-04-08 11:36 | NUR ---
PT'S HERE. PALLIATIVE CARE COLLISION ESTIMATOR WITH HER. SPIRITUAL CARE HERE WELL.
--- NOTE | 2022-04-08 12:07 | NUR ---
Comfort Care Visit Pt resting in bed with his eyes closed. Pt non responsive. Inreased respiratory rate noted. Primary RN just provided comfort medication. Mild secretions noted. Pt appears comfortable with no S/S of distress at this time. Spouse Brooklynn at [facility]. Provided therapeutic listening, answered questions, and emotional support. Finisher Machine Vinayak in to offer spiritual support. Spoke with Primary RN and discussed case. Palliative Care will remain available.
--- NOTE | 2022-04-08 12:28 | NUR ---
Pt. on comfort care. Spouse is present and meeting with Palliative Care nurse. Nurse and spouse invited this door closer mechanic into the conversaiton. Spouse became cathartic about spiritual concerns of both her and the Pt. Spouse verbalizes understanding that the door closer mechanic is not a database security administrator, and requested this door closer mechanic to annoint and do a blessing of the sick for the Pt. as well as this door closer mechanic to hear her confession. Annointed and blessed Pt. Praayed with Spouse. Rapport is re-established as matters of lashawn and belief are discussed. Spouse verbalized gratitude for the spiritual care visit. This door closer mechanic will remain available to the Sp. and family. Will cont
--- NOTE | 2022-04-08 18:32 | NUR ---
SHIFT SUMMARY MEDICATED PT FREQUENTLY WITH COMFORT CARE MEDS PER EMAR. PT IS DISPLAYING SIGNIFICANT AIR HUNGER, ACCESSORY MUSCLE USE & ELEVATED RESP RATE >35BPM. PT REMAINS UNRESPONSIVE. AT BEDSIDE THROUGHOUT SHIFT. SPOKE WITH MD, ORDERS RECEIVED TO INCREASE ATIVAN TO Q1. ATROPINE, ROXANOL, HALDOL AND ATIVAN GIVEN PER EMAR NEEDED. PT RE-POSITIONED Q2. RECTAL TUBE, F/C AND SUBCLAVIAN CENTRAL LINE INTACT & PATENT.
--- NOTE | 2022-04-09 04:03 | NUR ---
PT ON COMFORT CARE. SPOUSE AT BEDSIDE. PRN PAIN MED, ATIVAN, AND ATROPINE DROPS GIVEN Q2H. RECTAL TUBE AND MELTON CATH IN PLACE, PATENT. SUCTION SET UP AT BEDSIDE. WILL CONTINUE TO MONITOR.
--- NOTE | 2022-04-09 04:59 | NUR ---
SPOUSE AT BEDSIDE. PT HAD LARGE AMOUNT OF MUCOUS DRAINING FROM NOSE. SUCTIONED MUCOUS OFF SIDE OF PT'S NOSE. USED WARM WASH CLOTH TO CLEAN PT'S FACE. WHILE TALKING WITH PT'S SPOUSE, THIS RN NOTICED PT TAKE HIS LAST BREATH AND STOPPED BREATHING. INFORMED SPOUSE THAT PT MIGHT HAVE PASSED. THIS RN WENT TO [facility] YESY WOLF TO HAVE TWO RN PRONOUNCE PT'S . YESY WOLF LISTENED TO PT'S HEART WITH HER STETHOSCOPE AND WE BOTH AGREE THAT PT PASSED AT 04:40. LEFT THE ROOM TO GIVE PRIVACY TO THE SPOUSE AT BEDSIDE. INFORMED KENNEDY Moore, EVENTS DIRECTOR, THAT PT IN RM 362 HAD PASSED.
--- NOTE | 2022-04-09 08:08 | NUR ---
Aba from [facility] came at [phone], provided patients facesheet & contact info for spouse. Pt left unit at [phone].
== END 2022-04-09 04:40 | DRG 286 ==
LOC: ER 10:45 → ICUE 12:16 → ICUW 12:16 → ICUE 13:00 → MEDS 04-08 06:21
PROVIDERS: Emergency Medicine; Family Medicine; Internal Medicine Critical Care Medicine; ADMIT Internal Medicine
PROC: 4A023N7 Measurement of Cardiac Sampling and Pressure, Left Heart, Percutaneous Approach (ICD-10-PCS; principal; 2022-03-31)
PROC: B2111ZZ Fluoroscopy of Multiple Coronary Arteries using Low Osmolar Contrast (ICD-10-PCS; 2022-03-31)
PROC: 5A1955Z Respiratory Ventilation, Greater than 96 Consecutive Hours (ICD-10-PCS; 2022-03-31)
PROC: 0BH17EZ Insertion of Endotracheal Airway into Trachea, Via Natural or Artificial Opening (ICD-10-PCS; 2022-03-31)
PROC: 02HV33Z Insertion of Infusion Device into Superior Vena Cava, Percutaneous Approach (ICD-10-PCS; 2022-03-31)
PROC: 3E043XZ Introduction of Vasopressor into Central Vein, Percutaneous Approach (ICD-10-PCS; 2022-03-31)
DX: I46.9 Cardiac arrest, cause unspecified (principal); I50.21 Acute systolic (congestive) heart failure; J96.01 Acute respiratory failure with hypoxia; G93.1 Anoxic brain damage, not elsewhere classified; D68.51 Activated protein C resistance; I13.0 Hypertensive heart and chronic kidney disease with heart failure and stage 1 through stage 4 chronic kidney disease, or unspecified chronic kidney disease; I49.01 Ventricular fibrillation; Z86.718 Personal history of other venous thrombosis and embolism; Z51.5 Encounter for palliative care; Z79.01 Long term (current) use of anticoagulants; E78.5 Hyperlipidemia, unspecified; Z20.822 Contact with and (suspected) exposure to COVID-19; Z66 Do not resuscitate; I48.91 Unspecified atrial fibrillation; I95.9 Hypotension, unspecified; Z85.46 Personal history of malignant neoplasm of prostate; M10.9 Gout, unspecified; Z87.891 Personal history of nicotine dependence; R73.9 Hyperglycemia, unspecified; N40.0 Benign prostatic hyperplasia without lower urinary tract symptoms; K21.9 Gastro-esophageal reflux disease without esophagitis; T45.516A Underdosing of anticoagulants, initial encounter; N18.32 Chronic kidney disease, stage 3b; E80.6 Other disorders of bilirubin metabolism
CPT/HCPCS: 0241U; 31500; 36415; 36556; 51702; 70450; 71045; 71260; 76937; 80047; 80048; 80053; 81001; 82140; 82248; 82803; 82947; 83735; 84100; 84484; 85014; 85025; 85027; 85610; 85730; 87040; 87070; 87077; 87086; 87186; 87205; 93005; 93010; 93306; 93454; 94002; 94003; 95819; 96365-59; 96366-59; 96368; 99152; 99153; 99291-25; A9270; C1751; C1769; C1887; C1894; C9113; J0282; J0295; J1630; J1644; J1953; J2060; J2250; J2704; J3010; J3411; J3480; J7030; J7050; J7060; Q9967